=== PATIENT | male | born 1960 | race Caucasian/White ===

== ENCOUNTER 2024-12-24 11:00 | Inpatient (IN) | payer MEDICARE, MEDICAID ==
[~2024-12-24] VITALS: Ht 185.4 cm; Wt 102.2 kg
[2024-12-24] MEDS ORDERED: FLUO-351 PO (12:10)
[2024-12-24] MEDS ORDERED: LEVO50 PO (12:10)
[2024-12-24] MEDS ORDERED: AMLO-258 PO (12:10)
[2024-12-24] MEDS ORDERED: LORA-192 PO (12:10)
[2024-12-24] MEDS ORDERED: QUET200T PO (12:10)
[2024-12-24] MEDS ORDERED: MELO-108 PO (12:10)
[2024-12-24] MEDS ORDERED: LISI-661 PO (12:10)
[2024-12-24] MEDS ORDERED: DIVA-112 PO (12:10)
[2024-12-24 12:35] LABS: PLATELET COUNT (AUTO) 199 K/uL (150-450); RED BLOOD CELL COUNT(AUTO) 4.91 MIL/uL (4.50-5.90); RED CELL DISTRIBUTION WIDTH 14.2 % (11.5-14.5); WHITE BLOOD COUNT (AUTO) 6.7 K/uL (4.5-11.0)
[2024-12-24 12:37] LABS: CALCIUM, TOTAL 8.5 mg/dL (8.8-10.5); CREATININE 1.14 mg/dL (0.60-1.30); GLOMERULAR FILTR. RATE CALC > 60 mL/min (>60); GLUCOSE,RANDOM 114 mg/dL (70-110); SODIUM SERUM 135 mmol/L (136-145); UREA NITROGEN, BLOOD 16 mg/dL (7-18)
[2024-12-24 16:08] LABS: COVID AG,FIA SOURCE NASAL SWAB
[2024-12-24 16:13] LABS: APPEARANCE,URINE CLEAR (CLEAR); GLUCOSE, URINE (UA) NEGATIVE (NEGATIVE); LEUKOCYTE ESTERASE ,URINE NEGATIVE (NEGATIVE); NITRATE,URINE NEGATIVE (NEGATIVE); OCCULT BLOOD,URINE NEGATIVE (NEGATIVE); PH,URINE DRUG SCREEN 6.5 (5.0-8.0); SPECIFIC GRAVITIY, URINE 1.014 (1.003-1.030)
[2024-12-24 16:23] LABS: AMPHET/METH SCREEN,URINE NEGATIVE (NEGATIVE); BARBITURATE SCREEN, URINE NEGATIVE (NEGATIVE); CANNABINOID SCREEN,URINE NEGATIVE (NEGATIVE); COCAINE SCREEN,URINE NEGATIVE (NEGATIVE); METHADONE SCREEN, URINE NEGATIVE (NEGATIVE)
[2024-12-24 16:25] LABS: ALCOHOL, URINE DRUG SCREEN NEGATIVE (NEGATIVE)
[2024-12-24 16:26] LABS: SARS-COV2 (COVID) ANTIGEN,FIA Negative (Negative)
[2024-12-24] MEDS ORDERED: PROMETHAZINE HCL 25 MG TABLET PO PRN (21:30)
[2024-12-24] MEDS ORDERED: ACETAMINOPHEN 325 MG TABLET PO PRN (21:30)
[2024-12-24] MEDS ORDERED: GuaiFENesin/D-METHORPHAN [SUGAR-FREE] 200-20MG/10 ML SYRUP UDCUP PO PRN (21:30)
[2024-12-24] MEDS ORDERED: MAGNESIUM HYDROXIDE SUSPENSION 30 ML UDCUP PO PRN (21:30)
[2024-12-24] MEDS ORDERED: MAG HYDROX/ALUMINUM HYD/SIMETH ES 30 ML SUSPENSION UDCUP PO PRN (21:30)
[2024-12-24] MEDS ORDERED: TUBERCULIN, PURIFIED PROTEIN DERIVATIVE 5 TU/0.1 ML SYRINGE ID ONE (21:30)
[2024-12-24] MEDS ORDERED: LOPERAMIDE HCL 2 MG CAPSULE PO PRN (21:30)
[2024-12-25] MEDS: DULoxetine HCL 20 MG CAPSULE PO SCH (08:32)
[2024-12-25 08:33] VITALS: BP 143/98; PULSE 61; RESP 18; TEMP 98.3; O2SAT 95
[2024-12-25] MEDS: OLANZapine 5 MG RAPDIS TABLET PO SCH (09:00)
[2024-12-25] MEDS ORDERED: PALIPERIDONE PALMITATE 234 MG/1.5 ML SYRINGE IM ONE (09:00)
[2024-12-25] MEDS: THIAMINE 100 MG TABLET PO SCH (09:00)
[2024-12-25] MEDS: MULTIVITAMINS WITH MINERALS, THERAPEUTIC TABLET PO SCH (09:00)
[2024-12-25] MEDS: FOLIC ACID 1 MG TABLET PO SCH (09:00)
[2024-12-25 20:08] VITALS: BP 117/84; PULSE 60; RESP 17; TEMP 97.9; O2SAT 94
[2024-12-25] MEDS: MELATONIN 5 MG TABLET PO SCH (20:28)
[2024-12-25 21:48] VITALS: RESP 16
[2024-12-25 21:56] VITALS: RESP 15
[2024-12-26 08:19] VITALS: BP 165/86; PULSE 67; RESP 18; TEMP 98.1; O2SAT 97
[2024-12-26 09:57] VITALS: BP 137/90; PULSE 77; RESP 16; TEMP 98.1
[2024-12-26 20:00] VITALS: BP 112/72; PULSE 67; RESP 17; TEMP 97.7; O2SAT 99
[2024-12-27 08:20] VITALS: BP 124/90; PULSE 62; RESP 18; TEMP 98.2; O2SAT 96
[2024-12-27] MEDS: RisperiDONE ER SUSPENSION 200 MG/0.56 ML PRE-FILLED SYRINGE SQ ONE (09:00)
[2024-12-27] MEDS ORDERED: RISP250S SQ (16:35)
[2024-12-27] MEDS ORDERED: HALO100V36 IM (18:13)
[2024-12-27 19:50] VITALS: BP_SYST 119; BP_SYST 135; BP_DIAS 69; BP_DIAS 93; PULSE 70; PULSE 75; RESP 18; TEMP 97.6; TEMP 97.9; O2SAT 100; O2SAT 98
[2024-12-27 20:01] VITALS: BP 135/93; PULSE 70; RESP 18; TEMP 97.9; O2SAT 100
[2024-12-27] MEDS: ZOLPIDEM TARTRATE 10 MG TABLET PO PRN (23:16)
[2024-12-27 23:18] VITALS: BP 140/89; PULSE 72; RESP 18; O2SAT 97
[2024-12-28] MEDS: BENZTROPINE MESYLATE 2 MG TABLET PO SCH (08:18)
[2024-12-28 08:19] VITALS: BP 105/90; PULSE 71; RESP 18; TEMP 98.1; O2SAT 97
[2024-12-28] MEDS ORDERED: RisperiDONE ER SUSPENSION 250 MG/0.7 ML PRE-FILLED SYRINGE SQ ONE (09:00)
[2024-12-28] MEDS ORDERED: RisperiDONE ER SUSPENSION 250 MG/0.7 ML PRE-FILLED SYRINGE SQ SCH (09:00)
[2024-12-28 20:00] VITALS: BP 124/84; PULSE 61; RESP 17; TEMP 98.1; O2SAT 98
[2024-12-29 04:34] VITALS: BP 133/88; PULSE 65; RESP 18; TEMP 97.8; O2SAT 99
[2024-12-29 08:08] VITALS: BP 126/92; PULSE 66; RESP 17; TEMP 98.1; O2SAT 98
[2024-12-29] MEDS ORDERED: PALIPERIDONE PALMITATE 156 MG/ML SYRINGE IM ONE (09:00)
[2024-12-29 19:59] VITALS: BP 140/81; PULSE 62; RESP 18; TEMP 98.1; O2SAT 96
[2024-12-29 22:00] VITALS: BP 140/81; PULSE 62; RESP 18; TEMP 98.1; O2SAT 96
[2024-12-30 08:16] VITALS: BP 138/95; PULSE 71; RESP 17; TEMP 98.3; O2SAT 98
[2024-12-30] MEDS: IBUPROFEN 600 MG TABLET PO PRN (19:00)
[2024-12-30 20:00] VITALS: BP 136/83; PULSE 73; RESP 17; TEMP 98.2; O2SAT 98
[2024-12-31 08:03] VITALS: BP 101/83; PULSE 60; RESP 18; TEMP 97.4; O2SAT 97
[2024-12-31] MEDS ORDERED: BENZ2TAB84 PO (11:33)
[2024-12-31] MEDS ORDERED: MULT-1303 PO (11:35)
[2024-12-31] MEDS ORDERED: THIA100T80 PO (11:35)
[2024-12-31] MEDS ORDERED: FOLI-130 PO (11:35)
[2024-12-31 11:47] VITALS: TEMP 98
[2025-02-24] MEDS ORDERED: RisperiDONE ER SUSPENSION 200 MG/0.56 ML PRE-FILLED SYRINGE SQ SCH (09:00)
== END 2024-12-31 12:25 | DRG 885 ==
LOC: EMS 11:00 → B2X 19:08
PROVIDERS: ADMIT Psychiatry & Neurology Psychiatry; ATTEND Psychiatry & Neurology Psychiatry
PROC: GZHZZZZ Group Psychotherapy (ICD-10-PCS; principal; 2024-12-25)
PROC: GZ56ZZZ Individual Psychotherapy, Supportive (ICD-10-PCS; 2024-12-26)
PROC: GZ58ZZZ Individual Psychotherapy, Cognitive-Behavioral (ICD-10-PCS; 2024-12-26)
DX: F25.9 Schizoaffective disorder, unspecified (principal); E78.00 Pure hypercholesterolemia, unspecified; I10 Essential (primary) hypertension; Z20.822 Contact with and (suspected) exposure to COVID-19; G89.29 Other chronic pain; F31.9 Bipolar disorder, unspecified; Z87.891 Personal history of nicotine dependence; Z91.148 Patient's other noncompliance with medication regimen for other reason
CPT/HCPCS: 80048; 80307; 81003; 85025; 87081; 99285; G0480; J1631

== ENCOUNTER 2025-01-01 00:29 | Emergency (ER) | payer MEDICARE, MEDICAID ==
[~2025-01-01] VITALS: Ht 185.4 cm; Wt 111.4 kg
[~2025-01-01 00:29] MED LIST: BENZ2TAB84 PO; HALO100V36 IM
[2025-01-01 00:44] VITALS: TEMP 97.9
[2025-01-01 02:44] LABS: COVID AG,FIA SOURCE NASAL SWAB
[2025-01-01] MEDS: ACETAMINOPHEN 325 MG TABLET PO ONE (02:47)
[2025-01-01 03:13] LABS: PLATELET COUNT (AUTO) 208 K/uL (150-450); RED BLOOD CELL COUNT(AUTO) 4.88 MIL/uL (4.50-5.90); RED CELL DISTRIBUTION WIDTH 13.6 % (11.5-14.5); WHITE BLOOD COUNT (AUTO) 7.6 K/uL (4.5-11.0)
[2025-01-01 03:15] LABS: CALCIUM, TOTAL 8.9 mg/dL (8.8-10.5); CREATININE 0.89 mg/dL (0.60-1.30); GLOMERULAR FILTR. RATE CALC > 60 mL/min (>60); GLUCOSE,RANDOM 122 mg/dL (70-110); SODIUM SERUM 133 mmol/L (136-145); UREA NITROGEN, BLOOD 12 mg/dL (7-18)
[2025-01-01 03:18] LABS: APPEARANCE,URINE CLEAR (CLEAR); GLUCOSE, URINE (UA) NEGATIVE (NEGATIVE); LEUKOCYTE ESTERASE ,URINE NEGATIVE (NEGATIVE); NITRATE,URINE NEGATIVE (NEGATIVE); OCCULT BLOOD,URINE NEGATIVE (NEGATIVE); PH,URINE DRUG SCREEN 6.0 (5.0-8.0); SPECIFIC GRAVITIY, URINE 1.003 (1.003-1.030)
[2025-01-01 03:19] LABS: SARS-COV2 (COVID) ANTIGEN,FIA Negative (Negative)
[2025-01-01 03:20] LABS: ASPARTATE AMINOTRANSFERASE 22 U/L (15-37); TOTAL PROTEIN, SERUM 6.8 g/dL (6.4-8.2)
[2025-01-01 03:25] LABS: ALCOHOL, URINE DRUG SCREEN NEGATIVE (NEGATIVE); AMPHET/METH SCREEN,URINE NEGATIVE (NEGATIVE); BARBITURATE SCREEN, URINE NEGATIVE (NEGATIVE); CANNABINOID SCREEN,URINE NEGATIVE (NEGATIVE); COCAINE SCREEN,URINE NEGATIVE (NEGATIVE); METHADONE SCREEN, URINE NEGATIVE (NEGATIVE)
[2025-01-01 03:39] LABS: ALCOHOL, BLOOD (SERUM) < 3 mg/dL (0-10)
[2025-01-01] MEDS: LORazepam 2 MG/ML VIAL IM ONE (09:30)
[2025-01-01 10:01] VITALS: BP 119/86; PULSE 86; RESP 16; O2SAT 98
== END 2025-01-01 10:30 ==
LOC: EMS 00:30
DX: F20.9 Schizophrenia, unspecified (principal); R45.1 Restlessness and agitation; E78.00 Pure hypercholesterolemia, unspecified; F31.9 Bipolar disorder, unspecified; F17.210 Nicotine dependence, cigarettes, uncomplicated; I10 Essential (primary) hypertension; Z98.890 Other specified postprocedural states; Z79.899 Other long term (current) drug therapy; Z20.822 Contact with and (suspected) exposure to COVID-19; Z88.5 Allergy status to narcotic agent
CPT/HCPCS: 99284; 87426; 80048; 80076; 81003; 85025; 36415; 96372; 80307; G0480; J1200; J1630; J2060